=== PATIENT | male | born 1940 | race Caucasian/White ===

== ENCOUNTER 2017-03-09 09:13 | Inpatient (IN) ==
[2017-03-09] MEDS ORDERED: LIDOCAINE 1% 20 ML VIAL ONE (09:36)
[2017-03-09] MEDS ORDERED: ENOXAPARIN 60 MG/0.6 ML SYRINGE ONE (09:37)
[2017-03-09] MEDS ORDERED: ASPIRIN 325 MG TABLET PO STA (09:37)
[2017-03-09] MEDS ORDERED: NITROGLYCERIN 2% OINT 1 INCH/GM PACK TOP ONE (09:37)
[2017-03-09] MEDS ORDERED: MORPHINE 2 MG/1 ML SYRINGE IV STA (09:37)
[2017-03-09] MEDS ORDERED: ENOXAPARIN 30 MG/0.3 ML SYRINGE ONE (09:37)
[2017-03-09] MEDS ORDERED: METOPROLOL TARTRATE 25 MG TABLET PO STA (09:37)
[2017-03-09] MEDS ORDERED: METOPROLOL TARTRATE 25 MG TABLET ONE (09:37)
[2017-03-09] MEDS ORDERED: ONDANSETRON 4 MG/2 ML VIAL IV STA (09:37)
[2017-03-09] MEDS ORDERED: ENOXAPARIN 100 MG/ML SYRINGE SUBCUT STA (09:37)
[2017-03-09] MEDS ORDERED: NITROGLYCERIN 2% OINT 1 INCH/GM PACK TOP STA (09:37)
[2017-03-09] MEDS ORDERED: METOPROLOL TARTRATE 5 MG/5 ML VIAL IV ONE ×2 (09:41→09:46)
[2017-03-09] MEDS: METOPROLOL TARTRATE 5 MG/5 ML VIAL IV SCH ×3 (09:45→09:55)
[2017-03-09] MEDS ORDERED: ZALEPLON 5 MG CAPSULE PO PRN (09:47)
[2017-03-09] MEDS ORDERED: POTASSIUM CHLORIDE 20 MEQ TABLET PO PRN (09:47)
[2017-03-09] MEDS ORDERED: MAGNESIUM SULF RIDER 2 GM in PREMIX 1 EACH IV PRN ×2 (09:47→09:51)
[2017-03-09] MEDS ORDERED: ASPIRIN 325 MG TABLET ONE (09:48)
[2017-03-09] MEDS ORDERED: POTASSIUM CHLORIDE RIDER 10 MEQ in PREMIX 1 EACH IV PRN (09:51)
[2017-03-09] MEDS ORDERED: diphenhydrAMINE CAP 25 MG CAPSULE PO ONE (09:51)
[2017-03-09] MEDS ORDERED: DIAZEPAM 5 MG TABLET PO ONE (09:51)
[2017-03-09 09:57] LABS: Basophils # 0.1 10*3/uL (0.0-0.2); Basophils % 0.3 % (0.0-0.8); Eosinophils # 0.1 10*3/uL (0.0-0.87); Eosinophils % 0.5 % (0.00-10.9); Hematocrit 45.7 VOL% (42.0-52.0); Hemoglobin 15.1 GM/DL (14.0-18.0); Immature Granulocytes % 0.7 %; Immature Granulocytes Absolute 0.11 #; Lymphocytes # 3.4 10*3/uL (1.4-4.0); Lymphocytes % 20.5 % (21.2-54.2); Mean Corpuscular Hemoglobin 29 PG (27-34); Mean Corpuscular Volume 88.7 FL (87-102); Mean Platelet Volume 12.4 FL (9.6-12.0); Monocytes # 1.8 10*3/uL (0.11-0.8); Monocytes % 11.1 % (1.7-12.7); Neutrophils # 10.9 10*3/uL (1.4-7.4); Neutrophils % 66.9 % (38.7-73.9); Platelet Count 229 T/CUMM (130-400); Red Blood Count 5.15 MC/CUMM (3.8-5.5); Red Cell Distribution Width 14.6 % (9.3-17.3); White Blood Count 16.3 T/CUMM (4-12)
[2017-03-09] MEDS ORDERED: MIDAZOLAM 2 MG/2 ML VIAL ONE (09:59)
[2017-03-09] MEDS ORDERED: fentaNYL 100 MCG/2 ML VIAL ONE (09:59)
[2017-03-09] MEDS ORDERED: ASPIRIN EC 325 MG TABLET PO SCH (10:00)
[2017-03-09 10:08] LABS: PT Patient Result 10.1 SECS
[2017-03-09] MEDS ORDERED: TIROFIBAN 5,000 MCG/100 ML PREMIX IV ONE (10:10)
[2017-03-09 10:30] LABS: Albumin 3.6 G/DL (3.4-5.0); Bilirubin,Total 0.5 MG/DL (0.2-1.0); Calcium 9.2 MG/DL (8.5-10.1); Magnesium 2.1 MG/DL (1.8-2.4); Osmolality,Calculated 282.3 MOS/KG (273-304); Potassium 3.6 MMOL/L (3.5-5.1); Total Protein 7.3 G/DL (6.4-8.3)
[2017-03-09] MEDS ORDERED: DEXTROSE 50% 25 GM/50 ML VIAL IV PRN (10:32)
[2017-03-09] MEDS ORDERED: TICAGRELOR 90 MG TABLET ONE (10:32)
[2017-03-09] MEDS ORDERED: GLUCAGON 1 MG VIAL IM PRN (10:32)
[2017-03-09] MEDS ORDERED: ACETAMINOPHEN 325 MG TABLET PO PRN (10:32)
[2017-03-09] MEDS ORDERED: TIROFIBAN 5,000 MCG/100 ML PREMIX IV SCH (11:00)
[2017-03-09] MEDS ORDERED: SODIUM CHLORIDE 0.9% 1,000 ML IV SCH (11:00)
[2017-03-09] MEDS ORDERED: NON-FORMULARY MEDICATION (Zolpidem Tartrate [Ambien] 10 MG) PO SCH (21:00)
[2017-03-09] MEDS ORDERED: clonazePAM 0.5 MG TABLET PO SCH (21:00)
[2017-03-09] MEDS ORDERED: ROSUVASTATIN 20 MG TABLET PO SCH ×2 (21:00)
[2017-03-09] MEDS: CARVEDILOL 6.25 MG TABLET PO SCH (21:16)
[2017-03-09] MEDS: TICAGRELOR 90 MG TABLET PO SCH (21:16)
[2017-03-09] MEDS: INSULIN ASPART PROTAMINE/ASPART 70/30 100 UNIT/ML SUBCUT SCH (22:12)
[2017-03-10 05:11] LABS: Basophils # 0.1 10*3/uL (0.0-0.2); Basophils % 0.3 % (0.0-0.8); Eosinophils # 0.2 10*3/uL (0.0-0.87); Hematocrit 41.2 VOL% (42.0-52.0); Hemoglobin 13.8 GM/DL (14.0-18.0); Immature Granulocytes % 0.8 %; Immature Granulocytes Absolute 0.11 #; Lymphocytes # 2.5 10*3/uL (1.4-4.0); Mean Corpuscular HGB Conc 33.5 GM/DL (32-36); Mean Corpuscular Hemoglobin 30 PG (27-34); Mean Corpuscular Volume 89.2 FL (87-102); Mean Platelet Volume 12.2 FL (9.6-12.0); Monocytes # 1.4 10*3/uL (0.11-0.8); Monocytes % 9.4 % (1.7-12.7); Neutrophils # 10.4 10*3/uL (1.4-7.4); Neutrophils % 71.5 % (38.7-73.9); Platelet Count 190 T/CUMM (130-400); Red Blood Count 4.62 MC/CUMM (3.8-5.5); Red Cell Distribution Width 14.7 % (9.3-17.3); White Blood Count 14.6 T/CUMM (4-12)
[2017-03-10 05:46] LABS: Albumin 3.1 G/DL (3.4-5.0); Bilirubin,Total 0.8 MG/DL (0.2-1.0); Osmolality,Calculated 286.1 MOS/KG (273-304); Potassium 3.7 MMOL/L (3.5-5.1)
[2017-03-10 06:02] LABS: CKMB % 5.5 %; Calcium 8.6 MG/DL (8.5-10.1); Osmolality,Calculated 286.1 MOS/KG (273-304); Potassium 3.8 MMOL/L (3.5-5.1); Risk Ratio 3.6; VLDL CHOLESTEROL 20.6 MG/DL
[2017-03-10 06:15] LABS: Troponin I Only 1.93 NG/ML (0.00-0.045)
[2017-03-10] MEDS: TICAGRELOR 90 MG TABLET PO SCH (08:39)
[2017-03-10] MEDS: INSULIN REGULAR 100 UNIT/ML SUBCUT PRN ×3 (08:39→08:41)
[2017-03-10] MEDS: CARVEDILOL 6.25 MG TABLET PO SCH (08:39)
[2017-03-10] MEDS ORDERED: ASPIRIN EC 81 MG TABLET PO SCH (09:00)
[2017-03-10] MEDS ORDERED: PANTOPRAZOLE 40 MG TABLET PO SCH (09:00)
[2017-03-10] MEDS ORDERED: TAMSULOSIN 0.4 MG CAPSULE PO SCH (09:00)
[2017-03-10] MEDS ORDERED: RAMIPRIL 2.5 MG CAPSULE PO SCH (10:00)
[2017-03-10] MEDS: INSULIN ASPART PROTAMINE/ASPART 70/30 100 UNIT/ML SUBCUT SCH (10:23)
[2017-03-10 10:52] VITALS: BP 154/77
== END 2017-03-10 11:20 | disposition home or self-care (01) | DRG 247 ==
LOC: N.ED 09:13 → N.EDINP 09:47 → N.CC 09:50
PROVIDERS: ADMIT Internal Medicine Cardiovascular Disease; ATTEND Internal Medicine Cardiovascular Disease
PROC: CLCCHCL (ICD-10-PCS; 2017-03-09 12:15)